=== PATIENT | female | born 1965 | race Caucasian/White ===

== ENCOUNTER 2018-05-27 13:35 | Inpatient (IN) | payer MEDICARE, OTHER ==
[~2018-05-27] VITALS: Ht 182.9 cm; Wt 91.2 kg
[2018-05-27] MEDS ORDERED: DIPH,PERTUSS(ACELL),TET VAC/PF 0.5 ML IM-VACC ONE ×2 (14:30→16:56)
[2018-05-27] MEDS ORDERED: AMPICILLIN/SULBACTAM 3 GM in SODIUM CHLORIDE 0.9% 100 ML IV ONE (15:00)
[2018-05-27] MEDS ORDERED: SODIUM CHLORIDE FLUSH 10ML SYR IVF ONE (15:00)
[2018-05-27] MEDS ORDERED: AMPICILLIN/SULBACTAM 3 GM IM ONE (15:00)
[2018-05-27 15:04] LABS: BASOPHILS # (AUTO) 0.06 x10^3/uL (0-0.1); BASOPHILS % (AUTO) 0 % (0-1); EOSINOPHILS # (AUTO) 0.04 x10^3/uL (0-0.4); EOSINOPHILS % (AUTO) 0 % (1-7); LYMPHOCYTES # (AUTO) 1.42 x10^3/uL (1-3.4); LYMPHOCYTES % (AUTO) 9 % (22-44); MD NO; MEAN CORPUSCULAR HEMOGLOBIN 29.3 pg (27.0-34.8); MEAN CORPUSCULAR VOLUME 86.1 fL (80-100); MEAN PLATELET VOLUME 9.3 fL (7.4-10.4); MONOCYTES # (AUTO) 0.46 x10^3/uL (0.2-0.8); MONOCYTES % (AUTO) 3 % (2-9); NEUTROPHILS # (AUTO) 13.13 x10^3/uL (1.8-6.8); NEUTROPHILS % (AUTO) 87 % (42-75); PLATELET COUNT 250 x10^3/uL (130-400); RED BLOOD COUNT 5.14 x10^6/uL (3.82-5.3); RED CELL DISTRIBUTION WIDTH 12.9 % (9.6-15.2)
[2018-05-27 15:13] LABS: ALANINE AMINOTRANSFERASE 36 U/L (12-78); ALBUMIN 3.9 g/dL (3.4-5.0); ANION GAP 7 mmol/L (5-15); CALCIUM 9.3 mg/dL (8.5-10.1); CHLORIDE 104 mmol/L (98-107); CREATININE 0.77 mg/dL (0.55-1.02)
[2018-05-27 15:15] LABS: ALKALINE PHOSPHATASE 103 U/L (45-117); BILIRUBIN,TOTAL 0.7 mg/dL (0.2-1.0); TOTAL PROTEIN 7.5 g/dL (6.4-8.2)
[2018-05-27] MEDS ORDERED: LEVO50TA PO (15:44)
[2018-05-27] MEDS ORDERED: HYDR-3307 PO (15:44)
[2018-05-27] MEDS ORDERED: DOCU-131 PO (15:44)
[2018-05-27] MEDS ORDERED: ALPR-475 PO (15:44)
[2018-05-27] MEDS ORDERED: LISI-170 PO (15:44)
[2018-05-27] MEDS ORDERED: OXYC5TAB3 PO (15:44)
[2018-05-27] MEDS ORDERED: ALPR2TAB PO (15:44)
[2018-05-27] MEDS ORDERED: CHOL2000 PO (15:44)
[2018-05-27] MEDS ORDERED: GUAIFENESIN/DM 200-20MG, 10ML UDC PO PRN (16:00)
[2018-05-27] MEDS ORDERED: morphine SULFATE 10 MG/ML, 1ML IVPush PRN (16:00)
[2018-05-27] MEDS ORDERED: ONDANSETRON 2MG/ML, 2ML IVPush PRN (16:00)
[2018-05-27] MEDS ORDERED: hydrALAzine 20 MG/ML, 1ML IVPush PRN (16:00)
[2018-05-27] MEDS ORDERED: ACETAMINOPHEN 325 MG TABLET PO PRN (16:00)
[2018-05-27 17:29] VITALS: BP 139/84
[2018-05-27] MEDS: HYDROcodone/APAP 10/325 MG TABLET PO SCH ×2 (18:02→21:00)
[2018-05-27] MEDS: ENOXAPARIN 40 MG/0.4 ML SQ SCH (18:04)
[2018-05-27] MEDS: D5%-0.45NACL+KCL 20MEQ 1,000 ML IV SCH (18:25)
[2018-05-27 18:57] VITALS: BP 106/66
[2018-05-27 20:48] VITALS: BP 102/62
[2018-05-27] MEDS: LISINOPRIL 20 MG TABLET PO SCH (20:48)
[2018-05-27] MEDS: AMPICILLIN/SULBACTAM 3 GM in SODIUM CHLORIDE 0.9% 100 ML IV SCH (23:20)
[2018-05-27] MEDS: OXYcodone IR 5MG TABLET PO SCH (23:44)
[2018-05-28 02:01] VITALS: BP 107/67
[2018-05-28] MEDS: D5%-0.45NACL+KCL 20MEQ 1,000 ML IV SCH ×3 (03:26→18:00)
[2018-05-28] MEDS: LEVOTHYROXINE 50 MCG TABLET PO SCH (04:55)
[2018-05-28] MEDS: AMPICILLIN/SULBACTAM 3 GM in SODIUM CHLORIDE 0.9% 100 ML IV SCH ×2 (04:55→11:42)
[2018-05-28 05:32] LABS: ANION GAP 7 mmol/L (5-15); CALCIUM 8.7 mg/dL (8.5-10.1); CHLORIDE 109 mmol/L (98-107)
[2018-05-28 05:37] LABS: BASOPHILS # (AUTO) 0.04 x10^3/uL (0-0.1); BASOPHILS % (AUTO) 0 % (0-1); EOSINOPHILS % (AUTO) 1 % (1-7); LYMPHOCYTES # (AUTO) 2.24 x10^3/uL (1-3.4); LYMPHOCYTES % (AUTO) 24 % (22-44); MD NO; MEAN CORPUSCULAR HEMOGLOBIN 29.4 pg (27.0-34.8); MEAN CORPUSCULAR HGB CONC 33.8 g/dL (32.4-35.8); MEAN CORPUSCULAR VOLUME 86.9 fL (80-100); MEAN PLATELET VOLUME 9.6 fL (7.4-10.4); MONOCYTES # (AUTO) 0.64 x10^3/uL (0.2-0.8); MONOCYTES % (AUTO) 7 % (2-9); NEUTROPHILS # (AUTO) 6.43 x10^3/uL (1.8-6.8); NEUTROPHILS % (AUTO) 68 % (42-75); PLATELET COUNT 216 x10^3/uL (130-400); RED BLOOD COUNT 4.57 x10^6/uL (3.82-5.3); RED CELL DISTRIBUTION WIDTH 13.1 % (9.6-15.2)
[2018-05-28 06:38] VITALS: BP 113/65
[2018-05-28] MEDS: HYDROcodone/APAP 10/325 MG TABLET PO SCH ×3 (07:27→21:44)
[2018-05-28] MEDS: DOCUSATE 100 MG CAPSULE PO SCH (09:00)
[2018-05-28] MEDS: CHOLECALCIFEROL 1,000 UNIT TABLET PO SCH (09:00)
[2018-05-28] MEDS: LISINOPRIL 20 MG TABLET PO SCH ×2 (09:00→20:47)
[2018-05-28] MEDS: OXYcodone IR 5MG TABLET PO SCH ×2 (11:00→18:25)
[2018-05-28] MEDS ORDERED: VANCOMYCIN PER PHARMACY MC PRN (12:30)
[2018-05-28] MEDS ORDERED: PHARMACOKINETIC CONSULTATION MC ONE (13:00)
[2018-05-28 13:01] VITALS: BP 114/70
[2018-05-28] MEDS ORDERED: PHARMACOKINETIC MONITORING MC PRN (13:30)
[2018-05-28] MEDS: ENOXAPARIN 40 MG/0.4 ML SQ SCH (18:00)
[2018-05-28] MEDS: ALPRazolam 1MG TABLET PO SCH ×2 (18:00→18:25)
[2018-05-28] MEDS: VANCOMYCIN 1,800 MG in SODIUM CHLORIDE 0.9% 250 ML IV SCH (18:26)
[2018-05-28 19:15] VITALS: BP 126/77
[2018-05-28] MEDS ORDERED: DIPHENHYDRAMINE 50 MG/ML, 1ML IVPush ONE (20:00)
[2018-05-29 01:17] VITALS: BP 115/69
[2018-05-29] MEDS: D5%-0.45NACL+KCL 20MEQ 1,000 ML IV SCH (01:37)
[2018-05-29] MEDS: LEVOTHYROXINE 50 MCG TABLET PO SCH (05:33)
[2018-05-29] MEDS: VANCOMYCIN 1,800 MG in SODIUM CHLORIDE 0.9% 250 ML IV SCH ×2 (05:33→18:08)
[2018-05-29 07:10] VITALS: BP 105/61
[2018-05-29] MEDS: LISINOPRIL 20 MG TABLET PO SCH ×2 (09:00→21:00)
[2018-05-29] MEDS: HYDROcodone/APAP 10/325 MG TABLET PO SCH ×3 (09:00→21:16)
[2018-05-29] MEDS: OXYcodone IR 5MG TABLET PO SCH ×2 (09:00→21:00)
[2018-05-29] MEDS: DOCUSATE 100 MG CAPSULE PO SCH (09:00)
[2018-05-29] MEDS: AMPICILLIN/SULBACTAM 3 GM in SODIUM CHLORIDE 0.9% 100 ML IV SCH ×2 (09:30→16:06)
[2018-05-29] MEDS: CHOLECALCIFEROL 1,000 UNIT TABLET PO SCH (11:13)
[2018-05-29] MEDS: LACTOBACILLUS CHEW TABLET PO SCH ×3 (11:14→21:16)
[2018-05-29 13:12] VITALS: BP 119/69
[2018-05-29] MEDS: ENOXAPARIN 40 MG/0.4 ML SQ SCH (18:00)
[2018-05-29] MEDS: ALPRazolam 1MG TABLET PO SCH (18:00)
[2018-05-29 19:29] VITALS: BP 109/70
[2018-05-30] MEDS: AMPICILLIN/SULBACTAM 3 GM in SODIUM CHLORIDE 0.9% 100 ML IV SCH ×3 (00:12→12:15)
[2018-05-30 01:26] VITALS: BP 106/57
[2018-05-30] MEDS: LEVOTHYROXINE 50 MCG TABLET PO SCH (05:52)
[2018-05-30] MEDS: VANCOMYCIN 1,800 MG in SODIUM CHLORIDE 0.9% 250 ML IV SCH (07:06)
[2018-05-30 07:25] VITALS: BP 117/69
[2018-05-30] MEDS: DOCUSATE 100 MG CAPSULE PO SCH (07:51)
[2018-05-30] MEDS: LISINOPRIL 20 MG TABLET PO SCH (09:00)
[2018-05-30] MEDS: HYDROcodone/APAP 10/325 MG TABLET PO SCH (09:00)
[2018-05-30] MEDS: OXYcodone IR 5MG TABLET PO SCH (09:00)
[2018-05-30] MEDS: LACTOBACILLUS CHEW TABLET PO SCH (09:53)
[2018-05-30] MEDS: CHOLECALCIFEROL 1,000 UNIT TABLET PO SCH (09:53)
[2018-05-30] MEDS ORDERED: AMOX1TAB64 PO (10:46)
[2018-05-30] MEDS ORDERED: SULF1TAB24 PO (10:46)
[2018-05-30] MEDS ORDERED: ACID1TAB7 PO (10:46)
[2018-05-30] MEDS ORDERED: LISI-170 PO (11:14)
== END 2018-05-30 14:14 | disposition home or self-care (01) | DRG 603 ==
LOC: ED 15:49 → EDIP 15:50 → ED 16:21 → 3NE 17:26
PROVIDERS: ADMIT Internal Medicine; ATTEND Internal Medicine
DX: L03.011 Cellulitis of right finger (principal); L03.123 Acute lymphangitis of right upper limb; S61.250A Open bite of right index finger without damage to nail, initial encounter; E03.9 Hypothyroidism, unspecified; F41.0 Panic disorder [episodic paroxysmal anxiety]; G89.29 Other chronic pain; I10 Essential (primary) hypertension; S61.232A Puncture wound without foreign body of right middle finger without damage to nail, initial encounter; S60.131A Contusion of right middle finger with damage to nail, initial encounter; S61.254A Open bite of right ring finger without damage to nail, initial encounter; M19.90 Unspecified osteoarthritis, unspecified site; M48.00 Spinal stenosis, site unspecified; Z79.899 Other long term (current) drug therapy; Z86.14 Personal history of Methicillin resistant Staphylococcus aureus infection; W54.0XXA Bitten by dog, initial encounter; Y93.89 Activity, other specified; Y92.098 Other place in other non-institutional residence as the place of occurrence of the external cause; Y99.8 Other external cause status; Z23 Encounter for immunization
CPT/HCPCS: 36415; 80048; 80053; 83605; 84145; 85025; 87040; 90715; 96365; J0295; J3370; J3480; J7050

== ENCOUNTER 2021-07-22 09:45 | Outpatient (CLI) | payer OTHER ==
[~2021-07-22 09:45] MED LIST: ACID1TAB7 PO; ALPR0.5T7 PO; ALPR2TAB PO; AMOX1TAB64 PO; CHOL2000 PO; DOCU-131 PO; HYDR-3248 PO; LEVO50TA PO; LISI-170 PO; OXYC5TAB98 PO; SULF-23 PO
[2021-07-22 10:20] LABS: CREATININE 0.76 mg/dL (0.55-1.02)
[2021-07-22] MEDS ORDERED: OMNIPAQUE 350 MG/ML, 100ML BOTTLE ONE (12:28)
== END 2021-07-22 23:59 | disposition home or self-care (01) ==
LOC: RAD 09:45
PROVIDERS: ATTEND Nurse Practitioner Family
DX: D25.9 Leiomyoma of uterus, unspecified (principal); N28.1 Cyst of kidney, acquired; N85.2 Hypertrophy of uterus
CPT/HCPCS: 36415; 74177; 82565; Q9967